=== PATIENT | male | born 1955 | race African-American/Black ===

== ENCOUNTER 2019-09-03 07:50 | Emergency (ER) | payer MEDICARE ==
[~2019-09-03] VITALS: Ht 182.9 cm; Wt 81.6 kg
[2019-09-03] MEDS ORDERED: IV NORMAL SALINE 500ML BAG 500 ML IV ONE (08:15)
[2019-09-03 08:20] LABS: BASO # 0.1 x10^3/uL (0.0-0.2); BASO % 1 % (0-3); EOS % 1 % (0-3); HEMATOCRIT 45.4 % (39.0-53.0); HEMOGLOBIN 15.2 g/dL (13.0-17.5); LYMPH # 2.4 x10^3/uL (1.0-4.8); LYMPH % 38 % (24-48); MEAN CORPUSCULAR HEMOGLOBIN 30 pg (25-35); MEAN CORPUSCULAR HGB CONC 34 g/dL (31-37); MEAN CORPUSCULAR VOLUME 90 fL (79-100); MONO # 0.5 x10^3/uL (0.0-1.1); MONO % 8 % (0-9); NEUT # 3.4 x10^3/uL (1.8-7.7); NEUT % 52 % (31-73); PLATELET COUNT 174 x10^3/uL (140-400); RED BLOOD COUNT 5.02 x10^6/uL (4.30-5.70); WHITE BLOOD COUNT 6.4 x10^3/uL (4.0-11.0)
--- NOTE | 2019-09-03 08:20 | PHYS DOC ---
Past Medical History Past Medical History: Diabetes-Type II Past Surgical History: No Surgical History Alcohol Use: Occasionally Drug Use: None Adult General Chief Complaint Chief Complaint: ALTERED MENTAL STATUS HPI HPI 63-year-old male presenting the emergency department today for altered mental status. EMS states the patient may have had a seizure but it was not a witnessed event. He did not hit his head. He denies drinking. His only medical condition is diabetes and has not taken insulin recently. He denies any pain. Onset today. Location generalized. Duration constant. No alleviating factors. EMS denies the patient have any focal neurologic deficits. Review of systems is negative for chest pain shortness of breath abdominal pain fevers and nuchal rigidity or chills. All other review of systems is negative. ED course: 63-year-old male presenting the emergency department today with altered mental status. On arrival the patient is tachycardic afebrile saturating well on room air. EKG obtained and reviewed by myself shows sinus tachycardia. ST segments are mild appropriate repolarization. Does not meet STEMI criteria. Not suggestive of acute ischemic changes. Blood work obtained along with head CT and chest x-ray and urinalysis. Blood work shows mildly elevated blood sugar. Otherwise grossly unremarkable. Coags negative. Urine drug screen shows cocaine and marijuana. Negative for salicylates acetaminophen or alcohol. Urinalysis shows glucosuria with increased specific gravity. Otherwise not suggestive of infection. Head CT is negative. Chest x-ray is negative. On reexamination the patient is more alert and oriented to person and place. We will do an ambulatory trial with plans to probably discharge. Patient is able to ambulate in the emergency department today without difficulty. He ate breakfast without difficulty. We will discharge the patient and refer him to his PCP in one to 2 days for follow-up. Current Medications Current Medications Current Medications Medications (Trade) Dose Ordered Sig/Lia Start Time Stop Time Status Last Admin Dose Admin Midazolam HCl (Versed) 2 mg STK-MED ONCE 09/03/19 09:41 09/03/19 09:42 DC Propofol 50 ml @ As Directed STK-MED ONCE 09/03/19 09:41 09/03/19 09:41 DC Sodium Chloride 500 ml @ 500 mls/hr 1X ONCE 09/03/19 08:15 09/03/19 09:14 DC 09/03/19 08:50 500 MLS/HR Allergies Allergies Allergies Coded Allergies Type Severity Reaction Last Updated Verified No Known Drug Allergies 09/03/19 No Physical Exam Physical Exam Constitutional: Well developed, well nourished, no acute distress, non-toxic appearance. [] HENT: Normocephalic, atraumatic, bilateral external ears normal, oropharynx moist, no oral exudates, nose normal. [] Eyes: PERRLA, EOMI, conjunctiva normal, no discharge. [] Neck: Normal range of motion, no tenderness, supple, no stridor. [] Cardiovascular:Heart rate regular rhythm, no murmur [] Lungs & Thorax: Bilateral breath sounds clear to auscultation [] Abdomen: Bowel sounds normal, soft, no tenderness, no masses, no pulsatile masses. [] Skin: Warm, dry, no erythema, no rash. [] Back: No tenderness, no CVA tenderness. [] Extremities: No tenderness, no cyanosis, no clubbing, ROM intact, no edema. [] Neurologic: Alert and oriented X 3, normal motor function, normal sensory function, no focal deficits noted. [] Mental status: Awake alert and oriented to person. Cranial nerves: Extraocular movements intact, eyebrows brianna bilaterally, smile symmetric, uvula elevation nl, shoulder shrug intact bilaterally, tongue protrusion normal Sensation: equal and normal in all extremities Strength: 5/5 in upper and lower extremities bilaterally Psych: Normal mood normal affect. Not suicidal or homicidal. Current Patient Data Vital Signs Vital Signs Date Time Temp Pulse Resp B/P (MAP) Pulse Ox O2 Delivery O2 Flow Rate FiO2 09/03/19 10:17 98 16 98 09/03/19 08:01 98.4 133/84 (100) Room Air 98.4 Lab Values Laboratory Tests Test 09/03/19 08:00 09/03/19 08:02 09/03/19 08:50 09/03/19 09:14 White Blood Count 6.4 x10^3/uL (4.0-11.0) Red Blood Count 5.02 x10^6/uL (4.30-5.70) Hemoglobin 15.2 g/dL (13.0-17.5) Hematocrit 45.4 % (39.0-53.0) Mean Corpuscular Volume 90 fL (79-100) Mean Corpuscular Hemoglobin 30 pg (25-35) Mean Corpuscular Hemoglobin Concent 34 g/dL (31-37) Red Cell Distribution Width 16.0 % (11.5-14.5) H Platelet Count 174 x10^3/uL (140-400) Neutrophils (%) (Auto) 52 % (31-73) Lymphocytes (%) (Auto) 38 % (24-48) Monocytes (%) (Auto) 8 % (0-9) Eosinophils (%) (Auto) 1 % (0-3) Basophils (%) (Auto) 1 % (0-3) Neutrophils # (Auto) 3.4 x10^3/uL (1.8-7.7) Lymphocytes # (Auto) 2.4 x10^3/uL (1.0-4.8) Monocytes # (Auto) 0.5 x10^3/uL (0.0-1.1) Eosinophils # (Auto) 0.0 x10^3/uL (0.0-0.7) Basophils # (Auto) 0.1 x10^3/uL (0.0-0.2) Prothrombin Time 13.0 SEC (11.7-14.0) Prothrombin Time INR 1.0 (0.8-1.1) Activated Partial Thromboplast Time 24 SEC (24-38) Glucose (Fingerstick) 323 mg/dL (70-99) H Sodium Level 134 mmol/L (136-145) L Potassium Level 4.5 mmol/L (3.5-5.1) Chloride Level 100 mmol/L (98-107) Carbon Dioxide Level 26 mmol/L (21-32) Anion Gap 8 (6-14) Blood Urea Nitrogen 14 mg/dL (8-26) Creatinine 1.2 mg/dL (0.7-1.3) Estimated GFR (Cockcroft-Gault) 73.5 BUN/Creatinine Ratio 12 (6-20) Glucose Level 306 mg/dL (70-99) H Calcium Level 9.2 mg/dL (8.5-10.1) Magnesium Level 1.9 mg/dL (1.8-2.4) Total Bilirubin 0.9 mg/dL (0.2-1.0) Aspartate Amino Transferase (AST) 75 U/L (15-37) H Alanine Aminotransferase (ALT) 53 U/L (16-63) Alkaline Phosphatase 122 U/L (46-116) H Troponin I Quantitative < 0.017 ng/mL (0.000-0.055) PE-Sjh-P-Type Natriuretic Peptide 4292 pg/mL (0-124) H Total Protein 7.5 g/dL (6.4-8.2) Albumin 3.0 g/dL (3.4-5.0) L Albumin/Globulin Ratio 0.7 (1.0-1.7) L Salicylates Level < 2.8 mg/dL (2.8-20.0) L Salicylate Last Dose Date Unknown Salicylate Last Dose Time Unknown Acetaminophen Level < 2 mcg/ml (10-30) L Acetaminophen Last Dose Date Unknown Acetaminophen Last Dose Time Unknown Ethyl Alcohol Level < 10 mg/dL (0-10) Urine Collection Type Unknown Urine Color Mimi Urine Clarity Clear Urine pH 6.0 Urine Specific [place] >=1.030 Urine Protein 100 mg/dL (NEG-TRACE) Urine Glucose (UA) >=1000 mg/dL (NEG) Urine Ketones (Stick) Trace mg/dL (NEG) Urine Blood Negative (NEG) Urine Nitrite Negative (NEG) Urine Bilirubin Small (NEG) Urine Urobilinogen Dipstick 1.0 mg/dL (0.2 mg/dL) Urine Leukocyte Esterase Negative (NEG) Urine RBC 1-2 /HPF (0-2) Urine WBC 0 /HPF (0-4) Urine Squamous Epithelial Cells Occ /LPF Urine Bacteria 0 /HPF (0-FEW) Urine Mucus Slight /LPF Urine Opiates Screen Neg (NEG) Urine Methadone Screen Neg (NEG) Urine Barbiturates Neg (NEG) Urine Phencyclidine Screen Neg (NEG) Urine Amphetamine/Methamphetamine Neg (NEG) Urine Benzodiazepines Screen Neg (NEG) Urine Cocaine Screen Pos (NEG) Urine Cannabinoids Screen Pos (NEG) Urine Ethyl Alcohol Neg (NEG) Laboratory Tests 09/03/19 08:00 Laboratory Tests 09/03/19 08:50 EKG EKG [] Radiology/Procedures Radiology/Procedures [] Course & Med Decision Making Course & Med Decision Making Pertinent Labs and Imaging studies reviewed. (See chart for details) [] Dragon Disclaimer Dragon Disclaimer This electronic medical record was generated, in whole or in part, using a voice recognition dictation system. Departure Departure Impression: Primary Impression: Drug abuse Disposition: 01 HOME, SELF-CARE Condition: STABLE Patient Instructions: Drug Abuse, FAQs Additional Instructions: Thank you for allowing us to participate in your care today. Return to the emergency department you have any new or worsening symptoms, or if you are concerned for any reason. Return to emergency department if you have any new or concerning symptoms including but not limited to fever, chills, nausea, vomiting, intractable pain, any new rashes, chest pain, shortness of air, uncontrolled bleeding, difficulty breathing, and/or vision loss. Follow up with your primary care physician within 1-2 days. Call your Primary Doctor tomorrow and inform them of your visit today. If you do not have a primary care provider we are happy to provide you with a list of our primary care providers contact information. This condition should be evaluated by your primary care physician and any recommended consulting services for continued management within 2 days after discharge. If at any time, you are having difficulty getting into your primary care doctor or a specialist, return to the emergency department. CROW SHRESTHA MD Sep 03, 2019 08:20
--- NOTE | 2019-09-03 08:35 | EKG ---
[facility] [address] [place] [address] Test Date: 2019-09-03 Test Time: 07:56:11 Pat Name: SHELLY JAY Department: Room: Gender: M Manager [employer]: : 1955 Requested By: CROW SHRESTHA Order Number: [id number] Reading MD: Measurements Intervals [place] Rate: 122 P: -24 MT: 132 QRS: 11 QRSD: 92 T: 46 QT: 326 QTc: 466 Interpretive Statements SINUS TACHYCARDIA LEFT ATRIAL ABNORMALITY ABNORMAL ECG RI6.01 No previous ECG available for comparison
--- NOTE | 2019-09-03 08:36 | RAD ---
PORTABLE CHEST 1V History: Altered Comparison: None. Findings: No consolidation or pleural effusion. Normal heart size. Calcified bibasilar granulomas likely related to prior granulomatous disease. No pneumothorax. Impression: 1. No acute cardiopulmonary process. Electronically signed by: Thomas Arriaga DO (09/03/2019 8:33 AM) [id number]
[2019-09-03 09:28] LABS: ALBUMIN/GLOBULIN RATIO 0.7 (1.0-1.7); CALCIUM 9.2 mg/dL (8.5-10.1); CREATININE 1.2 mg/dL (0.7-1.3); GFR 73.5; MAGNESIUM 1.9 mg/dL (1.8-2.4); POTASSIUM 4.5 mmol/L (3.5-5.1); TOTAL BILIRUBIN 0.9 mg/dL (0.2-1.0); TOTAL PROTEIN 7.5 g/dL (6.4-8.2)
--- NOTE | 2019-09-03 09:32 | RAD ---
CT HEAD WO CONTRAST History: Altered Comparison: None. Technique: Noncontrast CT imaging was performed of the head. Coronal reconstruction was performed. Exposure: One or more of the following individualized dose reduction techniques were utilized for this examination: 1. Automated exposure control 2. Adjustment of the mA and/or kV according to patient size 3. Use of iterative reconstruction technique. Findings: No intracranial hemorrhage. No mass effect. No hydrocephalus. Extra-axial spaces are unremarkable. Mild foci of decreased attenuation within the hemispheric white matter, most often due to chronic microvascular ischemia. Imaged orbits are unremarkable. Left maxillary sinus mucous retention cyst. Otherwise, the paranasal sinuses and mastoid air cells are clear. No acute calvarial fracture. Chronic left zygomatic arch fracture. Impression: 1. No acute intracranial abnormality. Electronically signed by: Thomas Arriaga DO (09/03/2019 9:29 AM) [id number]
[2019-09-03 09:41] LABS: BILIRUBIN,URINE SMALL (NEG); CLARITY,URINE CLEAR; COLOR,URINE AMBER; NITRITE,URINE NEGATIVE (NEG); PROTEIN,URINE 100 mg/dL (NEG-TRACE)
[2019-09-03] MEDS ORDERED: PROPOFOL 20 ML IV ONE (09:41)
[2019-09-03] MEDS ORDERED: MIDAZOLAM HCL/PF 2 MG/2 ML VIAL. ONE ×2 (09:41)
[2019-09-03] MEDS ORDERED: PROPOFOL 50 ML IV ONE (09:41)
[2019-09-03 09:47] LABS: BARBITURATES NEG (NEG); BENZODIAZEPINES NEG (NEG); CANNABINOIDS POS (NEG); COCAINE POS (NEG); METHADONE NEG (NEG); OPIATES NEG (NEG); PHENCYCLIDINE NEG (NEG)
[2019-09-03 09:48] LABS: AMPHETAMINE/METHAMPHETAMINE NEG (NEG)
[2019-09-03 10:07] LABS: ACETAMIN < 2 mcg/ml (10-30); SALIC < 2.8 mg/dL (2.8-20.0)
[2019-09-03 10:08] LABS: ETHANOL < 10 mg/dL (0-10)
[2019-09-03 10:11] LABS: BACTERIA,URINE 0 /HPF (0-FEW); SQUAMOUS EPITHELIAL CELL,UR OCC /LPF; WBC,URINE 0 /HPF (0-4)
[2019-09-03 10:47] VITALS: BP 122/79
== END 2019-09-03 11:59 | disposition home or self-care (01) ==
LOC: ER 07:50
DX: F14.10 Cocaine abuse, uncomplicated (principal); F12.10 Cannabis abuse, uncomplicated; R41.82 Altered mental status, unspecified; E11.9 Type 2 diabetes mellitus without complications
CPT/HCPCS: 36415; 70450; 71045; 80053; 80307; 80329; 81001; 82962; 83735; 83880; 84484; 85025; 85610; 85730; 93005; 99285; G0480; J2250; J2704; J7040